=== PATIENT | male | born 1950 | race Caucasian/White ===

== ENCOUNTER 2020-07-15 12:28 | Emergency (ER) | payer OTHER, MEDICARE ==
--- NOTE | 2020-07-15 15:37 | CR ---
Indication: Toe pain, injury possible cellulitis Comparison: None available. Technique: AP and lateral views right foot were obtained Findings: There is no displaced fracture, dislocation or bony erosion. The joint spaces are grossly preserved. There is mild soft tissue swelling. Impression: Mild soft tissue swelling without evidence of bony erosion or displaced fracture. Consider follow-up with MRI for improved characterization of marrow edema and enhancement if there is concern for osteomyelitis. Dictated by Aj Fischer MD @ 07/15/2020 3:34:[address] Aj Fischer @ Jul 15 2020 3:34PM
--- NOTE | 2020-07-15 16:02 | EDM.PDOC ---
ED HPI GENERAL MEDICAL PROBLEM - General Chief Complaint: Lower Extremity Injury/Pain Stated Complaint: RT BIG TOE Time Seen by Provider: 07/15/20 12:30 Source of Information: Reports: Patient History Limitations: Reports: No Limitations - History of Present Illness INITIAL COMMENTS - FREE TEXT/NARRATIVE: HISTORY AND PHYSICAL: History of present illness: Patient is a 70-year-old male who presents to the emergency department secondary to right toe pain which has been going on for 3 days. Patient states that 3 days ago he hit his toe nail on the bottom of his fridge. Patient states that he did not hit the whole toe but rather caught the nail on the bottom of the fridge and partially lifted the nail. Patient reports that the toe did not bleed but has swelled and been painful since. Patient reports that he was recently started on blood thinning medications due to A. fib that he just started. Patient has been soaking the toe in Epsom salt but has not taken anything for the pain. Patient denies fever, chills, chest pain, shortness of breath, or cough. Denies headache, neck stiff ness, change in vision, syncope, or near syncope. Denies nausea, vomiting, abdominal pain, diarrhea, constipation, or dysuria. Has not noted any blood in urine or stool. Patient has been eating and drinking appropriately. Review of systems: As per history of present illness and below otherwise all systems reviewed and negative. Past medical history: As per history of present illness and as reviewed below otherwise noncontributory. Surgical history: As per history of present illness and as reviewed below otherwise noncontributory. Social history: See social history for further information Family history: As per history of present illness and as reviewed below otherwise noncontributory. Physical exam: General: Patient is alert, oriented, and in no acute distress. Patient sitting comfortably on exam table. Patient's vitals are stable and reviewed by me. HEENT: Atraumatic, normocephalic, pupils equal and reactive bilaterally, negative for conjunctival pallor or scleral icterus, mucous membranes moist, TMs normal bilaterally, throat clear, neck supple, nontender, trachea midline. No drooling or trismus noted. No meningeal signs. No hot potato voice noted. Lungs: Clear to auscultation, breath sounds equal bilaterally, chest nontender. Heart: S1S2, regular rate and rhythm without overt murmur Abdomen: Soft, nondistended, nontender. Negative for masses or hepatosplenomegaly. Negative for costovertebral tenderness. Pelvis: Stable nontender. Genitourinary: Deferred. Rectal: Deferred. Skin: Intact, warm, dry. No lesions or rashes noted. Extremities: Right foot great toe is edematous and erythematous with ecchymosis and a partially lifted nail at the distal portion; nails of bilateral feet noted to have onychomycosis and thick/crusting. Passive and active range of motion intact of the right big toe. Capillary refill less than 2 seconds and sensation intact of the toe / complete RLE. The erythema of the toe starts to extend more proximally possible early cellulitis. DP/PT pulses intact of the RLE with cap refill < 2 seconds. Otherwise, atraumatic, negative for cords or calf pain. Neurovascular unremarkable. Neuro: Awake, alert, oriented. Cranial nerves II through XII unremarkable. Cerebellum unremarkable. Motor and sensory unremarkable throughout. Exam nonfocal. Notes: Patient is a 70-year-old male presents emergency department secondary to right toe pain for the last 3 days. Upon examination the great toe on the right foot has a partial nail avulsion at the distal end of the nail but the base of the nail / proximal end is still attached. There is ecchymosis around the nail and erythema throughout the digit extending proximally concerning for possible early cellulitis vs secondary erythema related to injury. Will obtain XR imaging of foot and INR/PT/PTT due to being on blood thinning mediation. (Patient goal INR 2 according to patient). Voices understanding and is agreeable to plan of care. Denies any further questions or concerns at this time. Diagnostics: X-ray Therapeutics: None Prescription: Keflex Impression: Right 1st toe injury Cellulitis, right 1st toe Supratherapeutic INR Plan: 1. Take medication as prescribed. You can alternate ibuprofen and Tylenol and Ibuprofen as directed for pain and discomfort. 2. Hold your warfarin's dose for tomorrow and Thursday and have it rechecked Thursday as scheduled and as discussed. Follow-up with your primary care provider as discussed. Also follow-up with the dance studio manager as discussed. Call Thursday morning to establish an appointment time with the dance studio manager. Definitive disposition and diagnosis as appropriate pending reevaluation and review of above. Right Toe-Hailux Pain Score (Numeric/FACES): 6 - Related Data Allergies Allergy/AdvReac Type Severity Reaction Status Date / Time No Known Allergies Allergy Verified 07/15/20 14:19 Home Meds: Home Meds Furosemide 20 mg PO DAILY 07/15/20 [History] Metoprolol Tartrate 50 ng PO DAILY 07/15/20 [History] Rosuvastatin [Crestor] 10 mg PO DAILY 07/15/20 [History] Warfarin [Coumadin] 5 mg PO DAILY 07/15/20 [History] cephALEXin [Keflex] 500 mg PO Q12H 10 Days #20 cap 07/15/20 [Rx] lisinopriL [Lisinopril] 10 mg PO DAILY 07/15/20 [History] Past Medical History HEENT History: Reports: Cataract, Other (See Below) Other HEENT History: wears glasses Cardiovascular History: Reports: High Cholesterol, Hypertension, Other (See Below) Other Cardiovascular History: pt reports "clot near his heart". Other Respiratory History: "Spot on his lung" not sure of cause. 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 Dermatologic History: Reports: Venous Stasis Dermatitis Other Dermatologic History: Exicision 2 spots for early cancer, Impetigo - Infectious Disease History Infectious Disease History: Reports: Chicken Pox - Past Surgical History Head Surgeries/Procedures: Reports: None HEENT Surgical History: Reports: Cataract Surgery, Tonsillectomy GI Surgical History: Reports: Colonoscopy Social & Family History - Tobacco Use Tobacco Use Status *Q: Never Tobacco User - Caffeine Use Caffeine Use: Reports: None - Recreational Drug Use Recreational Drug Use: No Review of Systems - Review of Systems Review Of Systems: Comprehensive ROS is negative, except as noted in HPI. ED EXAM, GENERAL - Physical Exam Exam: See Below (see dictation) Course - Vital Signs Last Recorded V/S: Last Vital Signs Temp 97.2 F 07/15/20 17:27 Pulse 85 07/15/20 17:27 Resp 20 07/15/20 17:27 BP 145/95 H 07/15/20 17:27 Pulse Ox 98 07/15/20 17:27 - Orders/Labs/Meds Labs: Laboratory Tests 07/15/20 07/15/20 Range/Units 14:52 15:35 INR 3.11 APTT 49.3 H (18.6-31.3) SEC Departure - Departure Time of Disposition: 17:11 Disposition: Home, Self-Care 01 Clinical Impression: Supratherapeutic INR Toe injury Qualifiers: Encounter type: initial encounter Laterality: right Qualified Code(s): S99.921A - Unspecified injury of right foot, initial encounter Cellulitis Qualifiers: Site of cellulitis: extremity Site of cellulitis of extremity: toe Laterality: right Qualified Code(s): L03.031 - Cellulitis of right toe - Discharge Information Prescriptions: cephALEXin [Keflex] 500 mg PO Q12H 10 Days #20 cap Instructions: Cellulitis, Adult Referrals: Alfonso Pires MD [Primary Care Provider] - Forms: ED Department Discharge Additional Instructions: The following information is given to patients seen in the emergency department who are being discharged to home. This information is to outline your options for follow-up care. We provide all patients seen in our emergency department with a follow-up referral. The need for follow-up, as well as the timing and circumstances, are variable depending upon the specifics of your emergency department visit. If you don't have a primary care physician on staff, we will provide you with a referral. We always advise you to contact your personal physician following an emergency department visit to inform them of the circumstance of the visit and for follow-up with them and/or the need for any referrals to a consulting specialist. The emergency department will also refer you to a specialist when appropriate. This referral assures that you have the opportunity for follow-up care with a specialist. All of these measure are taken in an effort to provide you with optimal care, which includes your follow-up. Under all circumstances we always encourage you to contact your private physician who remains a resource for coordinating your care. When calling for follow-up care, please make the office aware that this follow-up is from your r ecent emergency room visit. If for any reason you are refused follow-up, please contact the [facility] Emergency Department at and asked to speak to the emergency department charge nurse. [facility] [address] [place] [address] [facility] [address] [place] [address] [facility], [address] Ma, Podiatry [address] [place] [address] 1. Take medication as prescribed. You can alternate ibuprofen and Tylenol and Ibuprofen as directed for pain and discomfort. 2. Hold your warfarin's dose for tomorrow and Thursday and have it rechecked Thursday as scheduled and as discussed. Follow-up with your primary care provider as discussed. Also follow-up with the dance studio manager as discussed. Call Thursday morning to establish an appointment time with the dance studio manager. Sepsis Event Note (ED) - Evaluation Sepsis Screening Result: No Definite Risk
[2020-07-15 17:28] VITALS: BP 145/95; PULSE 85
== END 2020-07-15 17:29 | disposition home or self-care (01) ==
LOC: MW.ED 12:28
DX: S90.121A Contusion of right lesser toe(s) without damage to nail, initial encounter (principal); L03.031 Cellulitis of right toe; E78.00 Pure hypercholesterolemia, unspecified; I10 Essential (primary) hypertension; E66.9 Obesity, unspecified; Z68.30 Body mass index [BMI] 30.0-30.9, adult; R79.1 Abnormal coagulation profile; W22.8XXA Striking against or struck by other objects, initial encounter
CPT/HCPCS: 36415; 73620-26-RT; 73620-RT; 85610; 85730; 99283

== ENCOUNTER 2021-12-30 15:10 | Emergency (ER) | payer OTHER, MEDICARE ==
[2021-12-30 16:18] LABS: CORONAVIRUS COVID-19 NAA NEGATIVE (NEGATIVE); INFLUENZA A NAA NEGATIVE (NEGATIVE); INFLUENZA B NAA NEGATIVE (NEGATIVE)
[2021-12-30 16:33] LABS: CARBON DIOXIDE,CO2 29.5 mmol/L (21.0-32.0); POTASSIUM,K 4.2 mmol/L (3.5-5.1)
[2021-12-30 17:08] VITALS: BP 139/71; PULSE 61
== END 2021-12-30 17:06 | disposition home or self-care (01) ==
LOC: MW.ED 15:10
DX: R07.89 Other chest pain (principal); R05.9 Cough, unspecified; I45.2 Bifascicular block; E78.00 Pure hypercholesterolemia, unspecified; I10 Essential (primary) hypertension; E66.9 Obesity, unspecified; Z68.38 Body mass index [BMI] 38.0-38.9, adult; Z79.01 Long term (current) use of anticoagulants; Z79.899 Other long term (current) drug therapy; Z20.822 Contact with and (suspected) exposure to COVID-19
CPT/HCPCS: 0240U; 36415; 71045; 80053; 84484; 85025; 85610; 93005; 99285